=== PATIENT | female | born 1990 | race Two or more races ===

== ENCOUNTER 2016-09-21 11:00 | Observation (INO) | payer MEDICAID ==
[~2016-09-21 11:00] MED LIST: PREN27TA7 PO
== END 2016-09-21 13:40 | disposition home or self-care (01) | DRG 566 ==
LOC: LDRP 11:00
PROVIDERS: ADMIT Obstetrics & Gynecology; ATTEND Obstetrics & Gynecology
DX: O62.9 Abnormality of forces of labor, unspecified (principal); O48.0 Post-term pregnancy; Z3A.40 40 weeks gestation of pregnancy
CPT/HCPCS: 76805; 76818; G0378; 59025; 81002

== ENCOUNTER 2017-06-04 04:36 | Emergency (ER) | payer MEDICAID ==
[~2017-06-04] VITALS: Ht 152.4 cm; Wt 86.2 kg
[2017-06-04 04:49] VITALS: BP 137/60
[2017-06-04 05:32] LABS: Urine Bilirubin Negative (Negative); Urine Blood Negative /uL (Negative); Urine Color Straw (Yellow); Urine Glucose Normal (Normal); Urine Ketone Negative (Negative); Urine Nitrite Negative (Negative); Urine RBC 1 /hpf (0 - 4); Urine Squamous Epithelial Cell FEW /hpf (<5); Urine Urobilinogen Normal (Negative); Urine pH 6.5 (5.0-8.0)
[2017-06-04] MEDS ORDERED: ONDANSETRON ODT 4 MG TAB PO ONE (06:45)
[2017-06-04] MEDS ORDERED: KETOROLAC TROMETH 60MG/2ML VIAL IM ONE (06:45)
[2017-06-04 07:02] LABS: Basophils # (auto) 0 uL; Basophils % (auto) 0.1 % (0.0-2.0); Eosinophils # (auto) 0.1 uL; Eosinophils % (auto) 0.6 % (0.0-7.0); Hematocrit 40.2 % (36.0-46.0); Hemoglobin 13.5 g/dL (12.2-16.2); Lymphocytes # (auto) 1.9 uL; Lymphocytes % (auto) 18.2 % (10.0-50.0); Mean Corpuscular Hemoglobin 30.9 pg (28.0-32.0); Mean Corpuscular Hgb Conc. 33.5 g/dL (32.0-36.0); Mean Corpuscular Volume 92.1 fL (80.0-100.0); Mean Platelet Volume 7.4 fL (6.9-10.8); Monocytes # (auto) 0.4 uL; Monocytes % (auto) 4.2 % (0.0-12.0); Neutrophils % (auto) 76.9 % (37.0-80.0); Nucleated Red Blood Cells % 0.1 %; Platelet Count (auto) 281 10^3/uL (140-450); Red Cell Distribution Width 13.6 % (11.8-14.3); White Blood Cell 10.4 10^3/uL (4.4-10.8)
[2017-06-04 07:24] LABS: Albumin 3.7 g/dL (3.4-5.0); BUN/Creatinine Ratio 25.9; Calcium 9.1 mg/dL (8.5-10.1); Potassium 4.2 mmol/L (3.5-5.1)
[2017-06-04 07:27] LABS: Bilirubin, Total 0.2 mg/dL (0.2-1.0)
== END 2017-06-04 08:13 | disposition home or self-care (01) ==
LOC: ER 04:39
DX: K80.20 Calculus of gallbladder without cholecystitis without obstruction (principal); N39.0 Urinary tract infection, site not specified; K76.0 Fatty (change of) liver, not elsewhere classified
CPT/HCPCS: 36415; 76705; 80053; 81001; 81025; 82150; 83690; 85025; 96372; 99285; J1885; Q0162

== ENCOUNTER → 2020-09-17 | Outpatient (CLI) | payer MEDICAID ==
[2020-09-17 11:59] LABS: Basophils # (auto) 0 10 ^3/uL (0-0.2); Basophils % (auto) 0.1 % (0.0-2.0); Eosinophils # (auto) 0.1 10 ^3/uL (0-0.8); Eosinophils % (auto) 0.6 % (0.0-7.0); Lymphocytes % (auto) 19.5 % (10.0-50.0); Mean Corpuscular Hemoglobin 29.9 pg (28.0-32.0); Mean Corpuscular Hgb Conc. 34.2 g/dL (32.0-36.0); Mean Corpuscular Volume 87.5 fL (80.0-100.0); Monocytes # (auto) 0.5 10 ^3/uL (0-1.3); Monocytes % (auto) 5.2 % (0.0-12.0); Neutrophils # (auto) 7.5 10 ^3/uL (1.6-8.6); Neutrophils % (auto) 74.6 % (37.0-80.0); Nucleated Red Blood Cells % 0.1 %; Platelet Count (auto) 271 10^3/uL (140-450); Red Cell Distribution Width 15.8 % (11.8-14.3); White Blood Cell 10.1 10^3/uL (4.4-10.8)
[2020-09-18 07:06] LABS: RPR Non Reactive (Non Reactive)
== END | disposition home or self-care (01) ==
LOC: LAB 11:21
PROVIDERS: ATTEND Specialist
DX: Z34.80 Encounter for supervision of other normal pregnancy, unspecified trimester (principal); Z3A.00 Weeks of gestation of pregnancy not specified
CPT/HCPCS: 36415; 85025; 86592

== ENCOUNTER 2020-09-19 19:48 | Outpatient (CLI) | payer MEDICAID | END 2020-09-19 20:13 | disposition home or self-care (01) | LOC: OB 19:48 | PROVIDERS: ATTEND Specialist | DX: Z01.812 Encounter for preprocedural laboratory examination (principal); Z20.822 Contact with and (suspected) exposure to COVID-19 | CPT/HCPCS: C9803; U0003 ==

== ENCOUNTER 2020-09-23 04:02 | Inpatient (IN) | payer MEDICAID ==
[2020-09-23] VITALS (19 sets, daily range): BP systolic 98–162; BP diastolic 48–79
[~2020-09-23] VITALS: Ht 152.4 cm; Wt 96.6 kg
[2020-09-23] MEDS ORDERED: LACTATED RINGER'S 1,000 ML IV ONE (05:15)
[2020-09-23] MEDS ORDERED: LACTATED RINGER'S 1,000 ML IV SCH (05:15)
[2020-09-23] MEDS ORDERED: ceFAZolin 1GM/50ML 50 ML IV ONE (05:15)
[2020-09-23 05:49] LABS: Basophils # (auto) 0 10 ^3/uL (0-0.2); Basophils % (auto) 0.4 % (0.0-2.0); Eosinophils # (auto) 0 10 ^3/uL (0-0.8); Eosinophils % (auto) 0.4 % (0.0-7.0); Hematocrit 35.1 % (36.0-46.0); Hemoglobin 11.8 g/dL (12.2-16.2); Lymphocytes # (auto) 2.1 10 ^3/uL (0.4-5.4); Lymphocytes % (auto) 20.9 % (10.0-50.0); Mean Corpuscular Hemoglobin 29.6 pg (28.0-32.0); Mean Corpuscular Hgb Conc. 33.5 g/dL (32.0-36.0); Mean Corpuscular Volume 88.4 fL (80.0-100.0); Monocytes # (auto) 0.4 10 ^3/uL (0-1.3); Monocytes % (auto) 4.3 % (0.0-12.0); Neutrophils # (auto) 7.3 10 ^3/uL (1.6-8.6); Nucleated Red Blood Cells % 0.2 %; Platelet Count (auto) 261 10^3/uL (140-450); Red Blood Cells 3.97 10^6/uL (4.0-5.20); Red Cell Distribution Width 15.8 % (11.8-14.3); White Blood Cell 9.9 10^3/uL (4.4-10.8)
[2020-09-23 05:56] LABS: Urine Bacteria FEW /hpf (None Seen); Urine Blood Negative /uL (Negative); Urine Hyaline Cast FEW /lpf (0 - 2); Urine Mucus FEW (None Seen); Urine Specific Gravity 1.024 (1.001-1.035); Urine WBC 22 /hpf (0 - 5)
[2020-09-23 06:04] LABS: INR 0.96 (0.9-1.15); Partial Thromboplastin Time 28.8 sec (23.0-31.2)
[2020-09-23 06:06] LABS: Albumin 2.3 g/dL (3.4-5.0); Calcium 8.6 mg/dL (8.5-10.1); Potassium 3.7 mmol/L (3.5-5.1)
[2020-09-23 06:09] LABS: Bilirubin, Total 0.3 mg/dL (0.2-1.0); Total Protein 6.7 g/dL (6.4-8.2)
[2020-09-23] MEDS ORDERED: TETRACAINE 1% INJ 2 ML VIAL IJ ONE (09:19)
[2020-09-23] MEDS ORDERED: GLYCOPYRROLATE 0.2 MG/ML 1ML VIAL ONE (09:20)
[2020-09-23] MEDS ORDERED: ONDANSETRON HCL 4 MG/2 ML VIAL ONE (09:20)
[2020-09-23] MEDS ORDERED: oxyTOCIN 10 UNIT/ML 10ML VIAL ONE (09:20)
[2020-09-23] MEDS ORDERED: MORPHINE SULF(PF) 0.5MG/ML 10ML VIAL ONE (09:20)
[2020-09-23] MEDS ORDERED: fentaNYL CITRATE 100 MCG/2 ML VL ONE (09:20)
[2020-09-23] MEDS ORDERED: MEPERIDINE HCL (25 MG/ML) 1ML VIAL ONE (10:02)
[2020-09-23] MEDS ORDERED: ceFAZolin 1GM/50ML 50 ML IV SCH (11:15)
[2020-09-23] MEDS ORDERED: NALOXONE HCL 0.4 MG/ML VIAL IV PRN (11:15)
[2020-09-23] MEDS ORDERED: GUM (CHEWING) 1 GUM CHEW CHEW ONE (11:15)
[2020-09-23] MEDS ORDERED: ONDANSETRON HCL 4 MG/2 ML VIAL IV PRN ×3 (11:15)
[2020-09-23] MEDS ORDERED: KETOROLAC TROMETH 30 MG/ML 1ML VIAL IV ONE (11:15)
[2020-09-23] MEDS ORDERED: NALBUPHINE HCL 10 MG/1ml INJECTION SUBCUT ONE (11:15)
[2020-09-23] MEDS ORDERED: DexAMETHasone SOD PHOS 10MG/1ML VIAL INJ IV PRN (11:15)
[2020-09-23] MEDS ORDERED: diphenhdrAMINE HCL 50 MG/1 ML VL IV PRN (11:15)
[2020-09-23] MEDS ORDERED: HYDROmorphone HCL 2 MG/ML VL IV PRN (11:15)
[2020-09-23] MEDS ORDERED: KETOROLAC TROMETH 30 MG/ML 1ML VIAL IV PRN (11:15)
[2020-09-23] MEDS ORDERED: KETOROLAC TROMETH 30 MG/ML 1ML VIAL IV SCH (12:00)
[2020-09-23] MEDS: ceFAZolin 1GM/50ML 50 ML IV SCH (17:29)
[2020-09-23] MEDS: LACTATED RINGER'S 1,000 ML IV SCH (20:10)
[2020-09-24] VITALS (14 sets, daily range): BP systolic 92–132; BP diastolic 48–82
[2020-09-24] MEDS: ceFAZolin 1GM/50ML 50 ML IV SCH ×2 (02:02→09:23)
[2020-09-24] MEDS: LACTATED RINGER'S 1,000 ML IV SCH (04:05)
[2020-09-24 06:44] LABS: Basophils # (auto) 0 10 ^3/uL (0-0.2); Basophils % (auto) 0.4 % (0.0-2.0); Eosinophils # (auto) 0 10 ^3/uL (0-0.8); Eosinophils % (auto) 0.5 % (0.0-7.0); Hematocrit 28.5 % (36.0-46.0); Hemoglobin 9.7 g/dL (12.2-16.2); Lymphocytes # (auto) 1.8 10 ^3/uL (0.4-5.4); Lymphocytes % (auto) 19.5 % (10.0-50.0); Mean Corpuscular Hemoglobin 29.9 pg (28.0-32.0); Monocytes # (auto) 0.5 10 ^3/uL (0-1.3); Monocytes % (auto) 5.6 % (0.0-12.0); Neutrophils # (auto) 6.8 10 ^3/uL (1.6-8.6); Platelet Count (auto) 203 10^3/uL (140-450); Red Blood Cells 3.24 10^6/uL (4.0-5.20); Red Cell Distribution Width 15.9 % (11.8-14.3); White Blood Cell 9.2 10^3/uL (4.4-10.8)
[2020-09-24 07:07] LABS: RPR Non Reactive (Non Reactive)
[2020-09-24] MEDS ORDERED: MEASLES, MUMPS & RUBELLA VAC(MMRII) 0.5ML SC ONE (07:15)
[2020-09-24] MEDS ORDERED: BISACODYL 10 MG RECT SUPP PR PRN (09:15)
[2020-09-24] MEDS ORDERED: HYDROcodone-ACET 5/325MG TAB PO PRN (09:15)
[2020-09-24] MEDS: DOCUSATE CALCIUM 240 MG CAP PO SCH (09:24)
[2020-09-24] MEDS: FERROUS SULFATE 325 MG TAB PO SCH ×2 (09:25→17:54)
[2020-09-24] MEDS: DOCUSATE SOD 100 MG CAP PO SCH ×2 (09:26→22:35)
[2020-09-24] MEDS: IBUPROFEN 800 MG TAB PO PRN ×2 (12:56→20:45)
[2020-09-24] MEDS: HYDROcodone-ACET 5/325MG TAB PO PRN ×2 (15:44→23:57)
[2020-09-24] MEDS: SIMETHICONE 80 MG CHEWABLE TABLET PO SCH ×2 (17:54→22:35)
[2020-09-25 03:00] VITALS: BP 109/58
[2020-09-25] MEDS: IBUPROFEN 800 MG TAB PO PRN ×2 (05:30→20:01)
[2020-09-25] MEDS: SIMETHICONE 80 MG CHEWABLE TABLET PO SCH ×4 (05:30→23:04)
[2020-09-25 06:44] VITALS: BP 116/79
[2020-09-25] MEDS: FERROUS SULFATE 325 MG TAB PO SCH ×2 (08:24→17:25)
[2020-09-25] MEDS: DOCUSATE SOD 100 MG CAP PO SCH ×2 (09:44→22:00)
[2020-09-25] MEDS: DOCUSATE CALCIUM 240 MG CAP PO SCH (09:44)
[2020-09-25 11:00] VITALS: BP 118/79
[2020-09-25] MEDS: HYDROcodone-ACET 5/325MG TAB PO PRN (12:04)
[2020-09-25 14:44] VITALS: BP 119/71
[2020-09-25 19:30] VITALS: BP 118/58
[2020-09-25 23:00] VITALS: BP 119/77
[2020-09-26] MEDS: HYDROcodone-ACET 5/325MG TAB PO PRN (00:19)
[2020-09-26 03:00] VITALS: BP 112/78
[2020-09-26] MEDS: SIMETHICONE 80 MG CHEWABLE TABLET PO SCH (05:37)
[2020-09-26] MEDS: IBUPROFEN 800 MG TAB PO PRN (06:57)
[2020-09-26 07:00] VITALS: BP 119/81
[2020-09-26] MEDS: FERROUS SULFATE 325 MG TAB PO SCH (07:43)
[2020-09-26] MEDS: DOCUSATE SOD 100 MG CAP PO SCH (07:45)
[2020-09-26] MEDS ORDERED: MEASLES, MUMPS & RUBELLA VAC(MMRII) 0.5ML SC ONE (09:30)
== END 2020-09-26 10:23 | disposition home or self-care (01) | DRG 540 ==
LOC: LDRP 04:02
PROVIDERS: ADMIT Obstetrics & Gynecology; ATTEND Obstetrics & Gynecology
PROC: 10D00Z1 Extraction of Products of Conception, Low, Open Approach (ICD-10-PCS; principal; 2020-09-23 09:32)
DX: O34.13 Maternal care for benign tumor of corpus uteri, third trimester (principal); O34.211 Maternal care for low transverse scar from previous cesarean delivery; Z37.0 Single live birth; O99.02 Anemia complicating childbirth; D25.0 Submucous leiomyoma of uterus; Z20.822 Contact with and (suspected) exposure to COVID-19; Z3A.39 39 weeks gestation of pregnancy; R71.0 Precipitous drop in hematocrit; O99.62 Diseases of the digestive system complicating childbirth; K21.9 Gastro-esophageal reflux disease without esophagitis; O24.429 Gestational diabetes mellitus in childbirth, unspecified control
CPT/HCPCS: 36415; 59025; 80053; 81001; 81002; 82948; 82962; 85025; 85362; 85384; 85610; 85730; 86592; 86850; 86900; 86901; 86920; 94762; 96360; 96361; 96372; G0378; J0690; J1885; J2405; J2590

== ENCOUNTER 2023-01-11 09:49 | Emergency (ER) | payer MEDICAID ==
[~2023-01-11] VITALS: Ht 167.6 cm; Wt 91.0 kg
[2023-01-11 10:12] LABS: Basophils # (auto) 0 10 ^3/uL (0-0.2); Basophils % (auto) 0.3 % (0.0-2.0); Eosinophils # (auto) 0 10 ^3/uL (0-0.8); Eosinophils % (auto) 0.1 % (0.0-7.0); Hematocrit 37.8 % (36.0-46.0); Hemoglobin 12.7 g/dL (12.2-16.2); Lymphocytes # (auto) 1.6 10 ^3/uL (0.4-5.4); Lymphocytes % (auto) 13.6 % (10.0-50.0); Mean Corpuscular Hemoglobin 30.6 pg (28.0-32.0); Mean Corpuscular Hgb Conc. 33.6 g/dL (32.0-36.0); Mean Corpuscular Volume 91.1 fL (80.0-100.0); Monocytes # (auto) 0.3 10 ^3/uL (0-1.3); Monocytes % (auto) 2.3 % (0.0-12.0); Neutrophils # (auto) 9.6 10 ^3/uL (1.6-8.6); Neutrophils % (auto) 83.7 % (37.0-80.0); Red Blood Cells 4.15 10^6/uL (4.0-5.20); Red Cell Distribution Width 13.8 % (11.8-14.3); White Blood Cell 11.5 10^3/uL (4.4-10.8)
[2023-01-11 10:36] LABS: Albumin 3.6 g/dL (3.4-5.0); Calcium 8.7 mg/dL (8.5-10.1)
[2023-01-11 10:40] LABS: BUN/Creatinine Ratio 23.6 (10.0-20.0); Bilirubin, Total 0.2 mg/dL (0.2-1.0); Total Protein 7.4 g/dL (6.4-8.2)
[2023-01-11 14:01] VITALS: BP 95/69
== END 2023-01-11 14:02 | disposition home or self-care (01) ==
LOC: ER 09:49 → EDBD 09:49 → ER 14:01
DX: K80.20 Calculus of gallbladder without cholecystitis without obstruction (principal); R10.2 Pelvic and perineal pain; Z98.890 Other specified postprocedural states
CPT/HCPCS: 36415; 74176; 76705; 80053; 84702; 85025